=== PATIENT | female | born 1990 | race Caucasian/White ===

== ENCOUNTER 2019-01-21 19:11 | Emergency (ER) | payer BC ==
[2019-01-21 19:46] VITALS: BMI 23.0
[2019-01-21] MEDS ORDERED: LACTATED RINGERS SOLUTION 1000 ML INFUS.BAG IV ONE (20:12)
--- NOTE | 2019-01-21 20:16 | PDOC ---
History of Present Illness - General Chief Complaint: Alcohol intoxication Stated Complaint: INTOX - History of Present Illness Initial Comments: The pt is a 28F w/ a reported history of EtOH abuse who presents for evaluation of alcohol intoxication and seeking detox/rehab. She states that she recently went through a difficult break-up and her drinking has increased to blacking- out 4-5 times per week with liquor. She states that she will occasionally feel jittery at night if she does not have a drink. She denies seizures in the past. She denies recent illness, fevers/chills, SCHULTE, vision changes, falls/trauma, chest pain, trouble breathing, abdominal pain, N/V/C/D, dysuria, hematuria, blood in her stool, changes in sensation, or recent sexual activity. PMH: Denies PSH: Denies Meds: Denies Allergies: Denies SH: +tobacco and EtOH, denies illicit drug use PMD: Denies 01/21/19 20:12 EtOH elevated LFTs elevated, consistent w/ EtOH abuse No DORA Lytes wnl 01/21/19 21:41 Past History - Past Medical History Allergies/Adverse Reactions: Allergies Allergy/AdvReac Type Severity Reaction Status Date / Time No Known Allergies Allergy Verified 01/21/19 23:35 Home Medications: Ambulatory Orders NK [No Known Home Medication] 01/21/19 COPD: No - Suicide/Smoking/Psychosocial Hx Smoking History: Former smoker Have you smoked in the past 12 months: No Information on smoking cessation initiated: No Hx Alcohol Use: No Drug/Substance Use Hx: No Review of Systems - Review of Systems Able to Perform ROS?: Yes Comments:: GENERAL/CONSTITUTIONAL: No fever or chills. No weakness HEAD, EYES, EARS, NOSE AND THROAT: No change in vision. No ear pain or discharge. No sore throat CARDIOVASCULAR: No chest pain or shortness of breath RESPIRATORY: Denies cough, hemoptysis GASTROINTESTINAL: No nausea, vomiting, diarrhea or constipation GENITOURINARY: No dysuria, frequency, or change in urination MUSCULOSKELETAL: No joint or muscle swelling or pain. No neck or back pain SKIN: No rash NEUROLOGIC: No headache, vertigo, loss of consciousness, or change in strength/ sensation ENDOCRINE: No increased thirst. No abnormal weight change HEMATOLOGIC/LYMPHATIC: No anemia, easy bleeding, or history of blood clots ALLERGIC/IMMUNOLOGIC: No hives or skin allergy 01/21/19 20:15 Is the patient limited Georgian proficient: No *Physical Exam - Vital Signs Last Vital Signs Temp Pulse Resp BP Pulse Ox 98.8 F 124 H 16 138/87 100 01/21/19 19:15 01/21/19 19:15 01/21/19 19:15 01/21/19 19:15 01/21/19 19:15 - Physical Exam Comments: GENERAL: Awake, alert, and oriented to person/place/time, in no acute distress HEAD: No signs of trauma, normocephalic, atraumatic EYES: PERRLA, EOMI, sclera anicteric, conjunctiva clear ENT: Hearing grossly normal, nares patent, oropharynx clear without exudates. Moist mucosa LUNGS: No distress, speaks in full sentences, clear to auscultation bilaterally HEART: Regular rate and rhythm, normal S1 and S2, no murmurs appreciated, peripheral pulses normal and equal bilaterally ABDOMEN: Soft, nontender, normoactive bowel sounds. No guarding, no rebound EXTREMITIES: Normal inspection, Normal range of motion, no edema. No clubbing or cyanosis NEUROLOGICAL: Cranial nerves II through XII grossly intact. Normal/non-slurred speech, ambulating w/ stable gait, no focal sensorimotor deficits SKIN: Warm, Dry 01/21/19 20:16 ED Treatment Course - LABORATORY CBC & Chemistry Diagram: 01/21/19 20:40 01/21/19 20:40 Medical Decision Making - Medical Decision Making The pt is a 28F w/ no reported history who presents for evaluation of EtOH intoxication/abuse and wanting to quit ED Course CMP, CBC, EtOH 1L LR Pt voices that she would like to seek help to quit EtOH 01/21/19 20:16 No leukocytosis No anemia Plan for D/C to [facility] Discharge instructions and return precautions given Pt in agreement and verbalized understanding Pt w/ stable gait, oriented x3, non-slurred speech 01/21/19 21:51 *DC/Admit/Observation/Transfer Diagnosis at time of Disposition: Alcohol abuse, Tobacco abuse - Discharge Dispostion Disposition: ASSISTED FACILITY Condition at time of disposition: Stable Decision to Admit order: No - Referrals Referrals: [facility] [place] [Provider Group] Clemente Zhang MD [Staff Physician] - - Patient Instructions Printed Discharge Instructions: DI for Alcohol Abuse Additional Instructions: You were seen in the Emergency Department for evaluation of alcohol intoxication. Your liver function tests were mildly elevated and should be followed up with a primary care provider. Review the hand out provided at discharge. Follow up with the primary care provider referral or your PCP. Return to the Emergency Department if you develop fevers/chills, tremors, chest pain, trouble breathing, worsening symptoms, or any new/concerning symptoms. - Post Discharge Activity
[2019-01-21 20:50] LABS: EOS % 0.4 % (0-4.5); HEMATOCRIT 41.1 % (32.4-45.2); HEMOGLOBIN 13.3 GM/dL (10.7-15.3); LYMPH % 28.7 % (8-40); MCH 28.7 pg (25.7-33.7); MCHC 32.4 g/dl (32.0-36.0); MEAN CELL VOLUME 88.7 fl (80-96); MEAN PLT VOLUME 8.6 fl (7.5-11.1); MONO % 5.6 % (3.8-10.2); NEUT % 64.3 % (42.8-82.8); RBC 4.63 M/mm3 (3.60-5.2); WHITE BLOOD COUNT 8.1 K/mm3 (4.0-10.0)
[2019-01-21 21:19] LABS: ALBUMIN 4.1 g/dl (3.4-5.0); BILIRUBIN,TOTAL 0.3 mg/dL (0.2-1); CALCIUM 8.5 mg/dL (8.5-10.1); CREATININE 0.6 mg/dL (0.55-1.3)
[2019-01-21] MEDS ORDERED: ONDANSETRON 4 MG/2 ML VIAL IVPUSH ONE (21:55)
[2019-01-21] MEDS ORDERED: ONDANSETRON 4 MG/2 ML VIAL ONE (22:07)
--- NOTE | 2019-01-21 22:07 | PDOC ---
Documentation entered by Barbra Bellamy SCRIBE, acting as scribe for Samra Alcala MD. Samra Alcala MD: This documentation has been prepared by the Mia sky Adrianna, SCRIBE, under my direction and personally reviewed by me in its entirety. I confirm that the documentation accurately reflects all work, treatment, procedures, and medical decision making performed by me. Attending Attestation - Resident Resident Name: Everardo Harrington - ED Attending Attestation I have performed the following: I have examined & evaluated the patient, The case was reviewed & discussed with the resident, I agree w/resident's findings & plan, Exceptions are as noted - HPI HPI: The patient is a 28 year old female, with a significant PMH of EtOH abuse, who presents to the ED for evaluation of EtOH intoxication seeking detox. Patient notes an increase in her drinking recently secondary to a tough breakup. Patient admits to heavy drinking and blacking out 4-5 times per week. She states she sometimes feels jittery if she does not have a drink. Denies seizures related to EtOH consumption. She denies any recent falls or traumatic injury. Denies CP, SOB, fevers, chills, N/V/D, headache, focal weakness/numbness Denies SI/HI, AH/VH Allergies: NKA, NKDA Surgical History: None reported Social History: EtOh abuse. Daily tobacco use. Denies illicit drug use. - Physicial Exam PE: 01/21/19 22:03 GENERAL: Awake, alert, and fully oriented, in no acute distress HEAD: No signs of trauma EYES: PERRLA, EOMI, sclera anicteric, conjunctiva clear ENT: Auricles normal inspection, hearing grossly normal, nares patent, oropharynx clear without exudates. Moist mucosa NECK: Normal ROM, supple, no lymphadenopathy, JVD, or masses LUNGS: Breath sounds equal, clear to auscultation bilaterally. No wheezes, and no crackles HEART: Regular rate and rhythm, normal S1 and S2, no murmurs, rubs or gallops ABDOMEN: Soft, nontender, normoactive bowel sounds. No guarding, no rebound. No masses EXTREMITIES: Normal range of motion, no edema. No clubbing or cyanosis. No cords, erythema, or tenderness BACK: No midline cervical, thoracic, or lumbar ttp NEUROLOGICAL: Normal speech, cranial nerves intact, negative pronator drift, 5/ 5 strength in all 4 extremities, normal sensation to light touch in all 4 extremities, normal cerebellar exam, normal gait, normal reflexes and tone SKIN: Warm, Dry, normal turgor, no rashes or lesions noted. - Medical Decision Making 01/21/19 21:04 28yo F presents to the ED with alcohol intoxication, also seeking detox No clinical evidence of trauma Labs with elevated LFT and etoh level Plan to observe for sobriety, recheck vitals (tachycardic to 124 on arrival but was crying and intoxicated), likely transfer to [facility] 01/21/19 22:30 Rpt vitals wnl Pt is clincially sober Pt to be transferred to [facility] for detox
[2019-01-21 22:22] VITALS: BP 102/52; PULSE 88; TEMP 99.2
[2019-01-21 23:14] LABS: PLATELET COUNT 247 K/MM3 (134-434); PLATELET ESTIMATE ADEQUATE
== END 2019-01-21 23:12 | disposition other institution (70) ==
LOC: JER 19:11
PROC: 3E033GC Introduction of Other Therapeutic Substance into Peripheral Vein, Percutaneous Approach (ICD-10-PCS; principal; 2019-01-21)
PROC: 3E0337Z Introduction of Electrolytic and Water Balance Substance into Peripheral Vein, Percutaneous Approach (ICD-10-PCS; 2019-01-21)
DX: F10.120 Alcohol abuse with intoxication, uncomplicated (principal); Y90.8 Blood alcohol level of 240 mg/100 ml or more; Z72.0 Tobacco use
CPT/HCPCS: 36415; 80053; 80307; 85025; 99282-25

== ENCOUNTER 2019-01-21 23:27 | Inpatient (IN) | payer BC ==
--- NOTE | 2019-01-22 01:40 | HP ---
CIWA Score Nausea/Vomitin-Mild Nausea/No Vomiting Muscle Tremors: 3 Anxiety: 3 Agitation: 3 Paroxysmal Sweats: 2 Orientation: 0-Oriented Tacttile Disturbances: 0-None Auditory Disturbances: 0-None Visual Disturbances: 0-None Headache: 3-Moderate CIWA-Ar Total Score: 15 - Admission Criteria [facility]ASAS Guidelines: Admission for Medically Managed Detox: Requires at least one of the followin. CIWA greater than 12 2. Seizures within the past 24 hours 3. Delirium tremens within the past 24 hours 4. Hallucinations within the past 24 hours 5. Acute intervention needed for co occurring medical disorder 6. Acute intervention needed for co occurring psychiatric disorder 7. Severe withdrawal that cannot be handled at a lower level of care (continued vomiting, continued diarrhea, abnormal vital signs) requiring intravenous medication and/or fluids 8. Admission ROS [facility] Chief Complaint: Alcohol withdrawal symptoms Allergies/Adverse Reactions: Allergies Allergy/AdvReac Type Severity Reaction Status Date / Time No Known Allergies Allergy Verified 01/21/19 23:35 History of Present Illness: 28 years old female with six years of alcohol dependence is seeking admission to detox. This is her first detoxification and first admission to [facility]. Patient denies any medical history and reports insignificant period of sobriety. She denies suicidal ideation at this time Exam Limitations: No Limitations - Ebola screening Have you traveled outside of the country in the last 21 days: No Have you had contact with anyone from an Ebola affected area: No Do you have a fever: No - Review of Systems Constitutional: Chills, Loss of Appetite, Malaise, Changes in sleep, Weakness EENT: reports: Nose Congestion Respiratory: reports: No Symptoms reported Cardiac: reports: No Symptoms Reported GI: reports: Poor Appetite, Poor Fluid Intake, Abdominal cramping : reports: No Symptoms Reported Musculoskeletal: reports: No Symptoms Reported Integumentary: reports: Dryness, Flushing Neuro: reports: Headache, Weakness Endocrine: reports: No Symptoms Reported Hematology: reports: No Symptoms Reported Psychiatric: reports: No Sypmtoms Reported, Anxious, Depressed Other Systems: Reviewed and Negative Patient History - Patient Medical History Hx Anemia: No Hx Asthma: No Hx Chronic Obstructive Pulmonary Disease (COPD): No Hx Cancer: No Hx Cardiac Disorders: No Hx Congestive Heart Failure: No Hx Hypertension: No Hx Hypercholesterolemia: No Hx Pacemaker: No HX Cerebrovascular Accident: No Hx Seizures: No Hx Dementia: No Hx Diabetes: No Hx Gastrointestinal Disorders: No Hx Liver Disease: No Hx Genitourinary Disorders: No Hx Sexually Transmitted Disorders: No Hx Renal Disease (ESRD): No Hx Thyroid Disease: No Hx Human Immunodeficiency Virus (HIV): No (Negative) Hx Hepatitis C: No Hx Depression: No Hx Suicide Attempt: No Hx Bipolar Disorder: No Hx Schizophrenia: No - Patient Surgical History Past Surgical History: No - PPD History Previous Implant?: Yes Documented Results: Negative w/o proof Implanted On Prior R Admission?: No PPD to be Administered?: Yes - Reproductive History Patient is a Female of Child Bearing Age (11 -55 yrs old): Yes Last Menstrual Period: 12/22/18 Patient : No - Smoking Cessation Smoking history: Current every day smoker Have you smoked in the past 12 months: No Aproximately how many cigarettes per day: 5 Hx Chewing Tobacco Use: No Initiated information on smoking cessation: Yes 'Breaking Loose' booklet given: 01/22/19 - Substance & Tx. History Hx Alcohol Use: Yes Hx Substance Use: No Substance Use Type: Alcohol Hx Substance Use Treatment: No - Substances abused Alcohol Substance route: Oral Frequency: 3-6 times per week Amount used: 1 bottle of liqour Age of first use: 22 Date of last use: 01/21/19 Family Disease History - Family Disease History Family Disease History: Diabetes: Father, CA: Mother (breast cancer-) Admission Physical Exam [facility] - Vital Signs Vital Signs: Vital Signs - 24 hr 01/21/19 23:35 Temperature 100.1 F H Pulse Rate 90 Respiratory 16 Rate Blood Pressure 121/81 - Physical General Appearance: Yes: Moderate Distress, Tremorous, Irritable, Sweating, Anxious HEENTM: Yes: Within Normal Limits, Normal Voice, Pharynx Normal, Tm's normal Respiratory: Yes: Lungs Clear, Normal Breath Sounds, No Respiratory Distress Neck: Yes: Supple Breast: Yes: Breast Exam Deferred Cardiology: Yes: Regular Rhythm, Regular Rate Abdominal: Yes: Normal Bowel Sounds Genitourinary: Yes: Within Normal Limits Back: Yes: Normal Inspection Musculoskeletal: Yes: Within Normal Limits Extremities: Yes: Normal Inspection Neurological: Yes: Within Normal Limits, Alert, Normal Mood/Affect Integumentary: Yes: Warm Lymphatic: Yes: Within Normal Limits Cleared for Admission [facility] - Detox or Rehab [facility] Level of Care: Medically Managed Detox Regimen/Protocol: Librium Claeared for Rehab Admission: No POC Urine test - Test device test lot number: [id number] Expiration date: 06/18/20 - Control test control: Yes - Result Urine Test Results: Negative - NO line present Inpatient Rehab Admission - Rehab Decision to Admit Inpatient rehab admission?: No
[2019-01-22 01:41] VITALS: BMI 25.5
[2019-01-22] MEDS ORDERED: MAGNESIUM CITRATE 300 ML BOTTLE PO PRN (01:49)
[2019-01-22] MEDS ORDERED: MAGNESIUM HYDROX 2400MG/30ML ORAL SUSPENSION 30 ML CUP PO PRN (01:49)
[2019-01-22] MEDS ORDERED: MENTHOL/PHENOL 1 EACH UD MM PRN (01:49)
[2019-01-22] MEDS ORDERED: chlordiazePOXIDE HCL 25 MG CAPSULE PO PRN (01:49)
[2019-01-22] MEDS ORDERED: BISMUTH SUBSALICYLATE 524 MG/30 ML UD PO PRN (01:49)
[2019-01-22] MEDS ORDERED: hydrOXYzine PAMOATE 25 MG CAPSULE (FP) PO PRN (01:49)
[2019-01-22] MEDS ORDERED: NICOTINE POLACRILEX 2 MG GUM BUC PRN (01:49)
[2019-01-22] MEDS ORDERED: METHOCARBAMOL 500 MG TABLET PO PRN (01:49)
[2019-01-22] MEDS ORDERED: MAG HYDROX/AL HYDROX/SIMETH 30 ML UNIT-DOSE CUP PO PRN (01:49)
[2019-01-22] MEDS ORDERED: IBUPROFEN 400 MG TABLET (FP) PO PRN (01:49)
[2019-01-22] MEDS ORDERED: ACETAMINOPHEN 325 MG TABLET (FP) PO PRN ×2 (01:49)
[2019-01-22] MEDS: chlordiazePOXIDE HCL 25 MG CAPSULE PO SCH ×4 (06:09→22:48)
[2019-01-22] MEDS: PRENATAL VITAMINS W/ FOLIC ACID TABLET (FP) PO SCH (10:55)
[2019-01-22] MEDS: NICOTINE 14 MG/24 HOURS TOPICAL PATCH TD SCH (10:55)
--- NOTE | 2019-01-22 15:14 | PN ---
S CIWA - CIWA Score Nausea/Vomitin Muscle Tremors: 2 Anxiety: 4-Mod. Anxious/Guarded Agitation: 2 Paroxysmal Sweats: No Perspiration Orientation: 0-Oriented Tacttile Disturbances: 2-Mild Itch/Numbness/Burn Auditory Disturbances: 0-None Visual Disturbances: 2-Mild Sensitivity Headache: 0-None Present CIWA-Ar Total Score: 14 BHS Progress Note (SOAP) Subjective: Fatigue, Anxious, Tremors. Objective: PATIENT A & O X 3, OBSERVED AMBULATING ON UNIT UNASSISTED. IN NO ACUTE DISTRESS. 01/22/19 15:13 Vital Signs Temperature 97.0 F L 01/22/19 09:43 Pulse Rate 87 01/22/19 09:43 Respiratory Rate 18 01/22/19 09:43 Blood Pressure 114/74 01/22/19 09:43 O2 Sat by Pulse Oximetry (%) ADMISSION LAB RESULTS PENDING. 01/22/19 15:13 Assessment: 01/22/19 15:13 WITHDRAWAL SYMPTOMS. Plan: CONTINUE DETOX. INCREASE DAILY PO WATER INTAKE.
[2019-01-22] MEDS: THIAMINE HCL 100 MG TABLET (FP) PO SCH (22:47)
[2019-01-22] MEDS: MELATONIN 5 MG TABLETS PO PRN (22:50)
[2019-01-23] MEDS: chlordiazePOXIDE HCL 25 MG CAPSULE PO SCH ×4 (06:28→22:09)
--- NOTE | 2019-01-23 09:45 | PN ---
S CIWA - CIWA Score Nausea/Vomitin-Mild Nausea/No Vomiting Muscle Tremors: 2 Anxiety: 1-Mildly Anxious Agitation: 2 Paroxysmal Sweats: 1-Minimal Palms Moist Orientation: 1-Uncertain about Date Tacttile Disturbances: 1-Very Mild Itch/Numbness Auditory Disturbances: 0-None Visual Disturbances: 0-None Headache: 1-Very Mild CIWA-Ar Total Score: 10 BHS Progress Note (SOAP) Subjective: feeling ok today hesitate to discuss aftercare with staff sleeping on bed denies depressive mood no suicidal ideation patient feeling sad about her alcohol drinking emotional support informed recovery support Objective: 01/23/19 09:47 Vital Signs Temperature 99.2 F 01/23/19 09:34 Pulse Rate 66 01/23/19 09:34 Respiratory Rate 18 01/23/19 09:34 Blood Pressure 118/71 01/23/19 09:34 O2 Sat by Pulse Oximetry (%) see 01/22/19 ast repeat pending 01/23/19 09:49 Assessment: 01/23/19 09:50 alcohol withdrawal sx Plan: continue alcohol detox
[2019-01-23] MEDS: PRENATAL VITAMINS W/ FOLIC ACID TABLET (FP) PO SCH (10:39)
[2019-01-23] MEDS: NICOTINE 14 MG/24 HOURS TOPICAL PATCH TD SCH (10:39)
[2019-01-23 10:53] LABS: ALBUMIN 3.6 g/dl (3.4-5.0); BILIRUBIN,TOTAL 0.9 mg/dL (0.2-1); BLOOD UREA NITROGEN 9.1 mg/dL (7-18); CALCIUM 8.9 mg/dL (8.5-10.1); CREATININE 0.7 mg/dL (0.55-1.3); POTASSIUM 3.7 mmol/L (3.5-5.1); TOT PROT 6.6 g/dl (6.4-8.2)
[2019-01-23 11:14] LABS: HEMATOCRIT 38.2 % (32.4-45.2); HEMOGLOBIN 12.6 GM/dL (10.7-15.3); MCH 29.1 pg (25.7-33.7); MEAN CELL VOLUME 88.1 fl (80-96); MEAN PLT VOLUME 9.1 fl (7.5-11.1); RBC 4.33 M/mm3 (3.60-5.2); RDW 13.5 % (11.6-15.6); WHITE BLOOD COUNT 6.4 K/mm3 (4.0-10.0)
[2019-01-23 11:42] LABS: PLATELET COUNT 217 K/MM3 (134-434)
--- NOTE | 2019-01-23 13:59 | EKG ---
Test Reason : Blood Pressure : / mmHG Vent. Rate : 061 BPM Atrial Rate : 061 BPM P-R Int : 116 ms QRS Dur : 074 ms QT Int : 390 ms P-R-T Axes : 034 032 003 degrees QTc Int : 392 ms NORMAL SINUS RHYTHM NORMAL ECG NO PREVIOUS ECGS AVAILABLE Confirmed by MD ANEL, LALO ([id number]) on 01/23/2019 1:58:44 PM Referred By: Confirmed By:LALO TAM MD
[2019-01-23] MEDS: THIAMINE HCL 100 MG TABLET (FP) PO SCH (22:08)
[2019-01-23] MEDS: MELATONIN 5 MG TABLETS PO PRN (22:09)
[2019-01-24] MEDS ORDERED: chlordiazePOXIDE HCL 10 MG CAPSULE PO PRN
[2019-01-24] MEDS: chlordiazePOXIDE HCL 10 MG CAPSULE PO SCH ×2 (06:14→10:14)
[2019-01-24] MEDS: PRENATAL VITAMINS W/ FOLIC ACID TABLET (FP) PO SCH (10:14)
[2019-01-24] MEDS: NICOTINE 14 MG/24 HOURS TOPICAL PATCH TD SCH (10:14)
--- NOTE | 2019-01-24 11:11 | PN ---
S CIWA - CIWA Score Nausea/Vomitin-Mild Nausea/No Vomiting Muscle Tremors: 2 Anxiety: 2 Agitation: 1-Slight > Activity Paroxysmal Sweats: 1-Minimal Palms Moist Orientation: 0-Oriented Tacttile Disturbances: 1-Very Mild Itch/Numbness Auditory Disturbances: 0-None Visual Disturbances: 0-None Headache: 0-None Present CIWA-Ar Total Score: 8 BHS Progress Note (SOAP) Subjective: hesitate to social with peers in day room less tremor mild anxious Objective: 01/24/19 11:10 Vital Signs Temperature 97.7 F 01/24/19 09:04 Pulse Rate 57 L 01/24/19 09:04 Respiratory Rate 18 01/24/19 09:04 Blood Pressure 95/60 01/24/19 09:04 O2 Sat by Pulse Oximetry (%) Laboratory Last Values WBC 6.4 K/mm3 (4.0-10.0) 01/23/19 07:42 RBC 4.33 M/mm3 (3.60-5.2) 01/23/19 07:42 Hgb 12.6 GM/dL (10.7-15.3) 01/23/19 07:42 Hct 38.2 % (32.4-45.2) 01/23/19 07:42 MCV 88.1 fl (80-96) 01/23/19 07:42 MCH 29.1 pg (25.7-33.7) 01/23/19 07:42 MCHC 33.0 g/dl (32.0-36.0) 01/23/19 07:42 RDW 13.5 % (11.6-15.6) 01/23/19 07:42 Plt Count 217 K/MM3 (134-434) 01/23/19 07:42 MPV 9.1 fl (7.5-11.1) 01/23/19 07:42 Sodium 138 mmol/L (136-145) 01/23/19 07:42 Potassium 3.7 mmol/L (3.5-5.1) 01/23/19 07:42 Chloride 103 mmol/L (98-107) 01/23/19 07:42 Carbon Dioxide 27 mmol/L (21-32) 01/23/19 07:42 Anion Gap 8 MMOL/L (8-16) 01/23/19 07:42 BUN 9.1 mg/dL (7-18) 01/23/19 07:42 Creatinine 0.7 mg/dL (0.55-1.3) 01/23/19 07:42 Est GFR (CKD-EPI)AfAm 137.62 01/23/19 07:42 Est GFR (CKD-EPI)NonAf 118.74 01/23/19 07:42 Random Glucose 81 mg/dL (74-106) 01/23/19 07:42 Calcium 8.9 mg/dL (8.5-10.1) 01/23/19 07:42 Total Bilirubin 0.9 mg/dL (0.2-1) 01/23/19 07:42 AST 80 U/L (15-37) H 01/23/19 07:42 ALT 200 U/L (13-61) H 01/23/19 07:42 Alkaline Phosphatase 60 U/L (45-117) 01/23/19 07:42 Total Protein 6.6 g/dl (6.4-8.2) 01/23/19 07:42 Albumin 3.6 g/dl (3.4-5.0) 01/23/19 07:42 RPR Titer Nonreactive (NONREACTIVE) 01/23/19 07:42 lab noted Assessment: 01/24/19 11:11 alcohol withdrawal sx Plan: continue alcohol detox
[2019-01-24 13:12] VITALS: BP 104/72; PULSE 65; TEMP 98.9
[2019-01-25] MEDS ORDERED: chlordiazePOXIDE HCL 10 MG CAPSULE PO SCH (05:00)
--- NOTE | 2019-01-25 08:03 | DS ---
[facility] Detox Discharge Summary Admission Date: 01/22/19 Discharge Date: 01/24/19 - History Present History: Alcohol Dependence Additional Comments: 28 years old female admitted on 01/22/19 for alcohol withdrawal stabilization refuses multiple librium " I feel fine" ciwa = 4 patient prefers to go home and return to work patient agrees to pay attention on alcohol intake patient is alert no acute distress denies suicidal ideation Pertinent Past History: encourage the patient return to primary care provider and community support network as one of alcohol intake management - Physical Exam Results Vital Signs: Vital Signs Temperature 98.9 F 01/24/19 13:11 Pulse Rate 65 01/24/19 13:11 Respiratory Rate 18 01/24/19 13:11 Blood Pressure 104/72 01/24/19 13:11 O2 Sat by Pulse Oximetry (%) Pertinent Admission Physical Exam Findings: alcohol withdrawal sx Laboratory Last Values WBC 6.4 K/mm3 (4.0-10.0) 01/23/19 07:42 RBC 4.33 M/mm3 (3.60-5.2) 01/23/19 07:42 Hgb 12.6 GM/dL (10.7-15.3) 01/23/19 07:42 Hct 38.2 % (32.4-45.2) 01/23/19 07:42 MCV 88.1 fl (80-96) 01/23/19 07:42 MCH 29.1 pg (25.7-33.7) 01/23/19 07:42 MCHC 33.0 g/dl (32.0-36.0) 01/23/19 07:42 RDW 13.5 % (11.6-15.6) 01/23/19 07:42 Plt Count 217 K/MM3 (134-434) 01/23/19 07:42 MPV 9.1 fl (7.5-11.1) 01/23/19 07:42 Sodium 138 mmol/L (136-145) 01/23/19 07:42 Potassium 3.7 mmol/L (3.5-5.1) 01/23/19 07:42 Chloride 103 mmol/L (98-107) 01/23/19 07:42 Carbon Dioxide 27 mmol/L (21-32) 01/23/19 07:42 Anion Gap 8 MMOL/L (8-16) 01/23/19 07:42 BUN 9.1 mg/dL (7-18) 01/23/19 07:42 Creatinine 0.7 mg/dL (0.55-1.3) 01/23/19 07:42 Est GFR (CKD-EPI)AfAm 137.62 01/23/19 07:42 Est GFR (CKD-EPI)NonAf 118.74 01/23/19 07:42 Random Glucose 81 mg/dL (74-106) 01/23/19 07:42 Calcium 8.9 mg/dL (8.5-10.1) 01/23/19 07:42 Total Bilirubin 0.9 mg/dL (0.2-1) 01/23/19 07:42 AST 80 U/L (15-37) H 01/23/19 07:42 ALT 200 U/L (13-61) H 01/23/19 07:42 Alkaline Phosphatase 60 U/L (45-117) 01/23/19 07:42 Total Protein 6.6 g/dl (6.4-8.2) 01/23/19 07:42 Albumin 3.6 g/dl (3.4-5.0) 01/23/19 07:42 RPR Titer Nonreactive (NONREACTIVE) 01/23/19 07:42 lab noted - Treatment Hospital Course: Detox Protocol Followed, Detoxed Safely, Responded well, Discharged Condition Good, Rehab Referral Accepted Patient has Accepted a Rehab Referral to: new focus - Medication Discharge Medications: Ambulatory Orders NK [No Known Home Medication] 01/21/19 - Diagnosis (1) Alcohol dependence with uncomplicated withdrawal Status: Acute (2) Nicotine dependence Status: Acute Qualifiers: Nicotine product type: cigarettes Substance use status: in withdrawal Qualified Code(s): F17.213 - Nicotine dependence, cigarettes, with withdrawal - AMA Did Patient Leave Against Medical Advice: No
[2019-01-26] MEDS ORDERED: chlordiazePOXIDE HCL 10 MG CAPSULE PO ONE (05:00)
== END 2019-01-24 16:18 | disposition home or self-care (01) | DRG 897 ==
LOC: YASAS 23:27 → Y3N 01-22 02:00
PROVIDERS: ADMIT Surgery; ATTEND Surgery
PROC: HZ2ZZZZ Detoxification Services for Substance Abuse Treatment (ICD-10-PCS; principal; 2019-01-22)
DX: F10.230 Alcohol dependence with withdrawal, uncomplicated (principal); F17.210 Nicotine dependence, cigarettes, uncomplicated
CPT/HCPCS: 36415; 80053; 85027; 86593; 93005; 93010